=== PATIENT | female | born 1995 | race Caucasian/White ===

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

== ENCOUNTER 2018-06-22 09:19 | Emergency (ER) | payer BC ==
[~2018-06-22] VITALS: Ht 162.6 cm; Wt 56.8 kg
[2018-06-22] MEDS ORDERED: NIKKI1 TAB PO (09:26)
[2018-06-22 09:54] LABS: URINE WBC 0 /hpf (0-3)
[2018-06-22 09:56] LABS: HEMATOCRIT 41.3 % (37.0-47.0); HEMOGLOBIN 13.4 g/dL (12.5-16.0); MEAN CELL VOLUME 83 fl (78-100); MEAN CORPUSCULAR HEMOGLOBIN 27 pg (27-31); MEAN CORPUSCULAR HGB CONC 32 g/dL (33-37); MEAN PLATELET VOLUME 9.5 fl (7.4-10.4); PLATELET COUNT 325 K/mm3 (130-400); RED BLOOD COUNT 4.98 M/mm3 (4.10-5.30); RED CELL DISTRIBUTION WIDTH 12.5 % (11.5-14.5); WHITE BLOOD COUNT 8.9 K/mm3 (4.8-10.8)
[2018-06-22 10:07] LABS: ALBUMIN 4.4 g/dL (3.5-5.0); AST-SGOT 22 U/L (14-36); CALCIUM 9.3 mg/dL (8.4-10.2); CARBON DIOXIDE 26 mmol/L (22-30); GLUCOSE 95 mg/dL (65-105); LIPASE 59 U/L (23-300); SODIUM 139 mmol/L (137-145); TOTAL BILIRUBIN 0.6 mg/dL (0.2-1.3); TOTAL PROTEIN 7.9 g/dL (6.3-8.2)
[2018-06-22 10:10] LABS: PH-URINE 6.5 (5.0 - 8.0); URINE APPEARANCE HAZY; URINE BILIRUBIN NEGATIVE (NEGATIVE); URINE BLOOD 250 ery/uL (NEGATIVE); URINE COLOR YELLOW; URINE GLUCOSE NEGATIVE (NEGATIVE); URINE KETONE NEGATIVE (NEGATIVE); URINE LEUKOCYTE ESTERASE NEGATIVE (NEGATIVE); URINE NITRATE NEGATIVE (NEGATIVE); URINE PROTEIN(semi-quant) NEGATIVE (NEGATIVE); URINE UROBILINOGEN NORMAL (NORMAL)
[2018-06-22 10:11] LABS: URINE MUCUS PRESENT (NOT PRESENT)
[2018-06-22 10:13] LABS: ALT/SGPT < 3 U/L (9-52); LYMPHOCYTE 8 % (20-51); MONOCYTE 7 % (3-10); NEUTROPHILS 85 % (42-75)
[2018-06-22 11:11] LABS: CLUE CELLS NOT OBSERVED (Not Observd)
[2018-06-22] MEDS ORDERED: ULTRAM50 M1 PO (12:21)
[2018-06-22] MEDS ORDERED: ZOFRAN4 M2 PO (12:21)
[2018-06-22] MEDS ORDERED: IBU800 M1 PO (12:21)
[2018-06-22] MEDS ORDERED: CYCLOBENZAPRINE10 M1 PO (12:21)
[2018-06-22 12:48] VITALS: BP 114/75
== END 2018-06-22 12:39 | disposition home or self-care (01) ==
LOC: ED 09:19
PROVIDERS: Nurse Practitioner Primary Care
DX: N93.9 Abnormal uterine and vaginal bleeding, unspecified (principal); R10.2 Pelvic and perineal pain; R55 Syncope and collapse; R42 Dizziness and giddiness
CPT/HCPCS: J2270; J2405; J7030; Q0111

== ENCOUNTER 2018-11-28 21:52 | Emergency (ER) | payer BC ==
[~2018-11-28 21:52] MED LIST changes: +CYCLOBENZAPRINE10 M1 PO; +IBU800 M1 PO; +NIKKI1 TAB PO; +ULTRAM50 M1 PO; +ZOFRAN4 M2 PO
[2018-11-28] MEDS ORDERED: ACETAMINOPHEN-H1 TA2 PO (22:05)
[2018-11-28] MEDS ORDERED: AMOXICILLIN 50500 MG PO (22:05)
[2018-11-28 22:36] LABS: EOS % 0.1 % (1.0-5.0); HEMATOCRIT 40.6 % (37.0-47.0); HEMOGLOBIN 13.3 g/dL (12.5-16.0); LYMPH# 2.6 (1.50-4.00); MEAN CELL VOLUME 83 fl (78-100); MEAN CORPUSCULAR HEMOGLOBIN 27 pg (27-31); MEAN CORPUSCULAR HGB CONC 33 g/dL (33-37); MEAN PLATELET VOLUME 9.3 fl (7.4-10.4); MONO # 1.2 (0.20-0.80); PLATELET COUNT 372 K/mm3 (130-400); RED BLOOD COUNT 4.89 M/mm3 (4.10-5.30); RED CELL DISTRIBUTION WIDTH 13.4 % (11.5-14.5); WHITE BLOOD COUNT 11.9 K/mm3 (4.8-10.8)
[2018-11-28 22:47] LABS: POTASSIUM 4.1 mmol/L (3.5-5.1)
[2018-11-28 22:48] LABS: CALCIUM 8.9 mg/dL (8.3-10.5)
[2018-11-28 22:51] LABS: TOTAL BILIRUBIN 0.2 mg/dL (0.2-1.2)
[2018-11-29 00:09] VITALS: BP 104/61
[2018-11-29] MEDS ORDERED: AUGMENTIN 875-1 EAC1 PO (00:26)
== END 2018-11-29 00:42 | disposition home or self-care (01) ==
LOC: ED 21:52
PROVIDERS: Nurse Practitioner Family
DX: J03.80 Acute tonsillitis due to other specified organisms (principal); Z88.0 Allergy status to penicillin; Z88.5 Allergy status to narcotic agent
CPT/HCPCS: J1100; Q9967

== ENCOUNTER → 2019-01-24 | Outpatient (CLI) | payer BC ==
[~2019-01-24] VITALS: Ht 162.6 cm; Wt 54.5 kg
[~2019-01-24] MED LIST changes: +ACETAMINOPHEN-H1 TA2 PO; +AMOXICILLIN 50500 MG PO; +AUGMENTIN 875-1 EAC1 PO
[2019-01-24 17:16] VITALS: BP 109/76
[2019-01-24 17:16] LABS: ALBUMIN 4.1 g/dL (3.5-5.0)
[2019-01-24 17:17] LABS: CALCIUM 8.8 mg/dL (8.3-10.5)
[2019-01-24 17:20] LABS: TOTAL BILIRUBIN 0.8 mg/dL (0.2-1.2)
[2019-01-24 17:21] LABS: HEMATOCRIT 42.9 % (37.0-47.0); HEMOGLOBIN 14.5 g/dL (12.5-16.0); MEAN CELL VOLUME 82 fl (78-100); MEAN CORPUSCULAR HEMOGLOBIN 28 pg (27-31); MEAN CORPUSCULAR HGB CONC 34 g/dL (33-37); MEAN PLATELET VOLUME 9.4 fl (7.4-10.4); PLATELET COUNT 295 K/mm3 (130-400); RED BLOOD COUNT 5.21 M/mm3 (4.10-5.30); RED CELL DISTRIBUTION WIDTH 13.3 % (11.5-14.5); WHITE BLOOD COUNT 10.8 K/mm3 (4.8-10.8)
[2019-01-24 17:32] LABS: BAND 4 % (0-10); NEUTROPHILS 88 % (42-75)
[2019-01-24 17:33] LABS: LYMPHOCYTE 3 % (20-51); MONOCYTE 5 % (3-10)
[2019-01-24 17:57] VITALS: BP 106/67
[2019-01-24 17:58] VITALS: BP 106/67
== END ==
LOC: AMSURD 16:32 → LAB 16:32
PROVIDERS: Nurse Practitioner
DX: R00.0 Tachycardia, unspecified (principal); R11.10 Vomiting, unspecified; R19.7 Diarrhea, unspecified
CPT/HCPCS: J2405; J7030

== ENCOUNTER → 2019-09-20 | Outpatient (CLI) | payer BC ==
[2019-01-24 17:58] VITALS: BP 106/67
== END ==
LOC: LAB 13:03
DX: R39.9 Unspecified symptoms and signs involving the genitourinary system (principal)

== ENCOUNTER → 2020-02-07 | Outpatient (CLI) | payer BC ==
[2019-01-24 17:58] VITALS: BP 106/67
[2020-02-07 23:35] LABS: CLUE CELLS PRESENT (Not Observd)
== END ==
LOC: LAB 16:27
PROVIDERS: Physician Assistant
DX: N93.9 Abnormal uterine and vaginal bleeding, unspecified (principal)
CPT/HCPCS: Q0111

== ENCOUNTER → 2020-04-10 | Outpatient (CLI) | payer BC ==
[2019-01-24 17:58] VITALS: BP 106/67
== END ==
LOC: LAB 14:05
DX: R52 Pain, unspecified (principal); Z20.828 Contact with and (suspected) exposure to other viral communicable diseases

== ENCOUNTER → 2020-06-23 | Outpatient (CLI) | payer BC ==
[2019-01-24 17:58] VITALS: BP 106/67
== END ==
LOC: LAB 11:27
DX: R05 Cough (principal); Z20.822 Contact with and (suspected) exposure to COVID-19